=== PATIENT | female | born 1975 | race Caucasian/White ===

== ENCOUNTER 2018-08-10 14:45 | Emergency (ER) | payer OTHER ==
[~2018-08-10] VITALS: Ht 165.1 cm; Wt 77.1 kg
[~2018-08-10 14:45] MED LIST: AMBIEN5 MG; CEFADROXIL500 MG PO; CLONAZEPAM0.5 MG; WELLBUTRIN XL300 MG
[2018-08-10] MEDS ORDERED: EFFEXOR XR150 MG (15:19)
== END 2018-08-10 17:36 | disposition home or self-care (01) ==
LOC: ER 14:45
DX: K59.09 Other constipation (principal); R10.31 Right lower quadrant pain